=== PATIENT | female | born 1965 | race Hispanic/Latino ===

== ENCOUNTER 2017-11-04 04:23 | Emergency (ER) | payer MEDICARE ==
[~2017-11-04] VITALS: Ht 160 cm; Wt 95.3 kg
== END 2017-11-04 05:31 | disposition home or self-care (01) ==
LOC: ER 04:23
DX: M54.5 Low back pain (principal); S39.012A Strain of muscle, fascia and tendon of lower back, initial encounter; S30.1XXA Contusion of abdominal wall, initial encounter; S30.0XXA Contusion of lower back and pelvis, initial encounter; W01.0XXA Fall on same level from slipping, tripping and stumbling without subsequent striking against object, initial encounter; Y92.000 Kitchen of unspecified non-institutional (private) residence as the place of occurrence of the external cause; G47.00 Insomnia, unspecified
CPT/HCPCS: 99282

== ENCOUNTER 2018-07-06 18:40 | Emergency (ER) | payer OTHER ==
[~2018-07-06] VITALS: Ht 160 cm; Wt 77.1 kg
--- OUTSIDE RECORDS SUMMARY | 2018-07-06 18:43 | XMS REPORT ---
Author Author [facility] Address Unknown Phone Unavailable Care Team Providers Care Informatics Pharmacist Name Role Phone Unavailable Unavailable Problems This patient has no known problems. Allergies, Adverse Reactions, Alerts This patient has no known allergies or adverse reactions. Medications This patient has no known medications.
--- OUTSIDE RECORDS SUMMARY | 2018-07-06 18:43 | XMS REPORT ---
Author Author Admin, [place] Organization [facility] Address Unknown Phone Unavailable Allergies, Adverse Reactions, Alerts Allergy Name Reaction Description Start Date Severity Status Provider Allergies Unknown Conditions or Problems Problem Name Problem Code Onset Date Status Entry Date Provider Comment Standard Description Annotate Need for prophylactic vaccination with unspecified combined vaccine V06.9 Active Rasheeda Lucero LEAD DATABASE ADMINISTRATOR Need for prophylactic vaccination with unspecified combined vaccine Medication List Medication Instructions Start Date Stop Date Generic Name NDC Status Provider Patient Instruction Drug Treatment Unknown - unknown Immunizations Vaccine Administration Date Value Standard Description dT (Diphtheria and Tetanus) immunization for children, #1 given Td(adult) unspecified formulation Vital Signs Date Name Value Unit Range Description blood pressure, diastolic 90 mm[Hg] BP king blood pressure, systolic 150 mm[Hg] BP sys pulse rate E&M 59 /min Heart rate respiratory rate E&M 20 /min Resp rate temperature E&M 98.3 [degF] Body temperature Encounters Date Encounter Provider Code Facility 17:05:17 CDT Est Patient Nurse - Only Visit - [id number] Rasheeda Lucero LEAD DATABASE ADMINISTRATOR [id number] [facility] Procedures Code Procedure Name Date Entry Date Standard Description [id number] TD - Tetanus & Diptheria Toxoids 17:05:17 CDT [id number] Admin of Vaccine - Injection - 1 17:05:17 CDT
--- OUTSIDE RECORDS SUMMARY | 2018-07-06 18:43 | XMS REPORT | Clinical Summary ---
Author Author [facility] Address Unknown Phone Unavailable Care Team Providers Care Maintenance Shop Clerk Name Role Phone Melissa Duckworth MD PCP Allergies No Known Allergies Medications End Date Status Medication Sig Dispensed Refills Start Date Active temazepam (RESTORIL) 15 Take 15 mg by 0 mg capsule mouth nightly. For sleep Active Problems Problem Noted Date Open wound of right breast with complication 07/29/2016 Infection of right breast implant 07/29/2016 Overview: Patient had bilateral saline to silicone breast implant exchange with periareolar mastopexy and abdominoplasty performed in [place] in May 2016. Surgical wound infection 07/28/2016 Infected surgical wound 06/21/2016 Immunizations Name Dates Previously Given Next Due INFLUENZA QUAD PF 06/23/2016 Social History Date Tobacco Use Types Packs/Day Years Used Never Smoker Alcohol Use Drinks/Week oz/Week Comments No Sex Assigned at Date Recorded Not on file Industry Job Start Date Occupation Not on file Not on file Not on file Travel End Travel History Travel Start No recent travel history available. Last Filed Vital Signs Not on file Plan of Treatment Health Maintenance Due Date Last Done Comments CERVICAL CANCER SCREENING 09/06/1988 BREAST CANCER SCREENING 09/06/2017 COLON CANCER SCREENING 09/06/2017 SHINGLES VACCINES (#1) 09/06/2017 INFLUENZA VACCINE 11/17/2017 06/23/2016 Procedures Comments Procedure Name Priority Date/Time Associated Diagnosis TRANSFUSE RED BLOOD CELLS Routine 12/22/2017 5:31 PM CDT TRANSFUSE RED BLOOD CELLS Routine 12/22/2017 5:31 PM CDT TRANSFUSE RED BLOOD CELLS STAT 12/22/2017 5:31 PM CDT TRANSFUSE RED BLOOD CELLS STAT 12/22/2017 5:31 PM CDT after 07/05/2017 Results * Transfuse RBC (12/22/2017 5:31 PM CDT) Only the most recent of 4 results within the time period is included. after 07/05/2017 Insurance Payer Benefit Subscriber ID Type Phone Address Plan / Group [id number] [facility] xxxxxxxxx HMO [facility] Surgery Advance Directives Patient has advance care planning documents on file. For more information, audrey aponte contact: Jamal Blancas [address] [place] [address]
== END 2018-07-06 20:00 | disposition left against medical advice (07) ==
LOC: ER 18:40
DX: R51 Headache (principal)

== ENCOUNTER 2019-06-14 22:06 | Emergency (ER) | payer OTHER ==
[~2019-06-14] VITALS: Ht 160 cm; Wt 77.1 kg
[2019-06-14] MEDS ORDERED: HYDROCODONE/APAP 5MG-325MG TAB PO ONE (22:45)
[2019-06-14] MEDS ORDERED: KETOROLAC TROMETHAMINE 60 MG/2 ML VIAL IM ONE (22:45)
[2019-06-14] MEDS ORDERED: KETOROLAC TROMETHAMINE 60 MG/2 ML VIAL ONE (23:04)
[2019-06-14] MEDS ORDERED: HYDROCODONE/APAP 5MG-325MG TAB ONE (23:12)
--- NOTE | 2019-06-14 23:25 | Diagnostic Imaging Report ---
Exam: Left knee 3 views History: Pain status post fall Comparison: None. Findings: No acute displaced fracture or dislocation. Joint spaces are well-maintained. No joint effusion. Soft tissues unremarkable. Impression: No acute osseous abnormality. Signed by: Dr. Harsha Emmanuel M.D. on 06/14/2019 11:22 PM
[2019-06-14 23:38] VITALS: BP 167/104
== END 2019-06-14 23:54 | disposition home or self-care (01) ==
LOC: ER 22:06
DX: M25.562 Pain in left knee (principal); S83.412A Sprain of medial collateral ligament of left knee, initial encounter; S80.02XA Contusion of left knee, initial encounter; M25.462 Effusion, left knee; R26.2 Difficulty in walking, not elsewhere classified; X50.1XXA Overexertion from prolonged static or awkward postures, initial encounter; Y92.008 Other place in unspecified non-institutional (private) residence as the place of occurrence of the external cause
CPT/HCPCS: 73562; 96372; 99283; J1885